=== PATIENT | female | born 1950 | race African-American/Black ===

== ENCOUNTER 2017-06-20 01:44 | Inpatient (IN) | payer SELFPAY ==
[2017-06-20] VITALS (13 sets, daily range): BP systolic 133–157; BP diastolic 65–100
[~2017-06-20] VITALS: Ht 157.5 cm; Wt 64.9 kg
[2017-06-20] MEDS ORDERED: SODIUM CHLORIDE 0.9% 1,000 ML IV ONE (02:23)
[2017-06-20 02:58] LABS: BASOPHILS % 0.8 % (0.0-2.0); EOSINOPHILS % 2.5 % (0.0-5.0); LYMPHOCYTES % 33.5 % (20.0-50.0); MEAN CORPUSCULAR HEMOGLOBIN 17.7 pg (28.0-32.0); MEAN CORPUSCULAR VOLUME 63.5 fL (81.0-99.0); MEAN PLATELET VOLUME 8.7 fl (7.4-10.4); MONOCYTES % 7.6 % (2.0-8.0); NEUTROPHILS % 55.6 % (40.0-76.0); PLATELET 243 x1000/uL (130-400); RED BLOOD CELL COUNT 3.09 mill/uL (4.2-5.4); RED CELL DISTRIBUTION WIDTH 23.1 % (11.6-14.6)
[2017-06-20 03:01] LABS: HEMOGLOBIN. 5.5 g/dL (12.0-16.0)
[2017-06-20 03:02] LABS: HEMATOCRIT. 19.6 % (36.0-48.0)
[2017-06-20 03:10] LABS: CARBON DIOXIDE 25 mEq/L (21-32); CHLORIDE 108 mEq/L (98-107)
[2017-06-20 03:16] LABS: PLATELET ESTIMATE NORMAL
[2017-06-20 03:24] LABS: TOTAL IRON BINDING CAPACITY 433 ug/dL (250-450)
[2017-06-20] MEDS ORDERED: GUAIFENESIN 200MG/10ML SUGAR FREE UDC PO PRN (09:45)
[2017-06-20] MEDS ORDERED: ZOLPIDEM TARTRATE 5MG TABLET PO PRN (09:45)
[2017-06-20] MEDS ORDERED: LORAZEPAM 2MG/ML CPJ IV PRN (09:45)
[2017-06-20] MEDS ORDERED: NITROGLYCERIN 0.4MG TABLET SL SL PRN (09:45)
[2017-06-20] MEDS ORDERED: ACETAMINOPHEN 325MG TABLET PO PRN (09:45)
[2017-06-20] MEDS ORDERED: DIPHENHYDRAMINE 50MG/ML VIAL IV PRN (09:45)
[2017-06-20] MEDS ORDERED: IPRATROPIUM/ALBUTEROL 0.5-3(2.5)MG/3ML NEB INH PRN (09:45)
[2017-06-20] MEDS ORDERED: TRAMADOL 50MG TABLET PO PRN (09:45)
[2017-06-20] MEDS ORDERED: MAGNESIUM/ALUMINUM HYDROXIDE/SIMETHICONE 30ML UDC PO PRN (09:45)
[2017-06-20] MEDS ORDERED: CLONIDINE 0.1MG TABLET PO PRN (09:45)
[2017-06-20] MEDS ORDERED: NA PHOS,M-B/NA PHOS,DI-BA ENEMA 118ML PR PRN (09:45)
[2017-06-20] MEDS ORDERED: DOCUSATE SODIUM 100MG CAPSULE PO PRN (09:45)
[2017-06-20] MEDS ORDERED: ONDANSETRON HCL 4MG/2ML VIAL IV PRN (09:45)
[2017-06-20] MEDS ORDERED: LATA2.5D2 EACHEYE (10:06)
[2017-06-20] MEDS ORDERED: TIMO15DR12 EACHEYE (10:06)
[2017-06-20 10:32] LABS: VITAMIN B12 SERUM 258 pg/mL (211-911)
[2017-06-20 10:37] LABS: FOLIC ACID (FOLATE) SERUM > 20.00 ng/mL (>5.38)
[2017-06-20 14:49] LABS: *AMPHETAMINES SCREEN URINE NEGATIVE (NEGATIVE); *BARBITURATES SCREEN URINE NEGATIVE (NEGATIVE); *BENZODIAZEPINES SCREEN URINE NEGATIVE (NEGATIVE); *COCAINE SCREEN URINE NEGATIVE (NEGATIVE); CANNABINOID URINE SCREEN NEGATIVE (NEGATIVE); METHADONE URINE SCREEN NEGATIVE (NEGATIVE); OPIATES URINE SCREEN NEGATIVE (NEGATIVE); PHENCYCLIDINE URINE SCREEN NEGATIVE (NEGATIVE)
[2017-06-20 18:54] LABS: HEMATOCRIT 29.8 % (36.0-48.0); HEMOGLOBIN 9.4 g/dL (12.0-16.0)
[2017-06-20 19:00] LABS: PARTIAL THROMBOPLASTIN TIME 25.2 sec (24.0-34.0); PROTHROMBIN TIME 10.5 sec
[2017-06-20] MEDS: LISINOPRIL 20MG TABLET PO SCH (20:57)
[2017-06-21] VITALS: BP 142/77
[2017-06-21 04:00] VITALS: BP 113/69
[2017-06-21 08:07] VITALS: BP 145/66
[2017-06-21] MEDS: PANTOPRAZOLE SODIUM 40 MG/VIAL IV SCH (09:29)
[2017-06-21] MEDS: LISINOPRIL 20MG TABLET PO SCH ×2 (09:29→21:00)
[2017-06-21 11:14] VITALS: BP 144/76
[2017-06-21] MEDS ORDERED: LACTULOSE 20G/30ML UDC PO SCH (12:22)
[2017-06-21 16:07] VITALS: BP 160/75
[2017-06-21 16:32] LABS: BASOPHILS % 0.4 % (0.0-2.0); EOSINOPHILS % 3.5 % (0.0-5.0); HEMATOCRIT. 30.7 % (36.0-48.0); HEMOGLOBIN. 9.7 g/dL (12.0-16.0); MEAN CORPUSCULAR HEMOGLOBIN 22.5 pg (28.0-32.0); MEAN CORPUSCULAR VOLUME 70.9 fL (81.0-99.0); MEAN PLATELET VOLUME 8.7 fl (7.4-10.4); MONOCYTES % 8.9 % (2.0-8.0); NEUTROPHILS % 52.2 % (40.0-76.0); PLATELET 249 x1000/uL (130-400); RED BLOOD CELL COUNT 4.33 mill/uL (4.2-5.4); RED CELL DISTRIBUTION WIDTH 28.1 % (11.6-14.6)
[2017-06-21 16:49] LABS: PLATELET ESTIMATE NORMAL
[2017-06-21 16:52] LABS: CARBON DIOXIDE 25 mEq/L (21-32); CHLORIDE 108 mEq/L (98-107)
[2017-06-21] MEDS ORDERED: METOCLOPRAMIDE HCL 10MG/2ML VIAL IV NR ×2 (19:00→22:00)
[2017-06-21] MEDS ORDERED: BISACODYL 5MG TABLET PO NR ×2 (19:00→22:00)
[2017-06-21 20:00] VITALS: BP 164/74
[2017-06-21] MEDS ORDERED: SORBITOL 70% SOLN 30ML PO NR ×2 (20:00→23:00)
[2017-06-21] MEDS ORDERED: DEXT 5%/0.45% NACL KCL 20MEQ/L 1,000 ML IV SCH (20:30)
[2017-06-22] VITALS: BP 125/63
[2017-06-22 04:00] VITALS: BP 122/58
[2017-06-22] MEDS ORDERED: METOCLOPRAMIDE HCL 10MG/2ML VIAL IV NR (05:00)
[2017-06-22] MEDS ORDERED: BISACODYL 5MG TABLET PO NR (05:00)
[2017-06-22] MEDS ORDERED: SORBITOL 70% SOLN 30ML PO NR (06:00)
[2017-06-22 07:28] LABS: PARTIAL THROMBOPLASTIN TIME 26.3 sec (24.0-34.0); PROTHROMBIN TIME 10.8 sec
[2017-06-22 07:29] LABS: BASOPHILS % 0.5 % (0.0-2.0); EOSINOPHILS % 3.3 % (0.0-5.0); HEMATOCRIT. 30.7 % (36.0-48.0); HEMOGLOBIN. 9.7 g/dL (12.0-16.0); LYMPHOCYTES % 31.2 % (20.0-50.0); MEAN CORPUSCULAR HEMOGLOBIN 22.6 pg (28.0-32.0); MEAN CORPUSCULAR VOLUME 71.4 fL (81.0-99.0); MEAN PLATELET VOLUME 8.6 fl (7.4-10.4); MONOCYTES % 7.6 % (2.0-8.0); NEUTROPHILS % 57.4 % (40.0-76.0); PLATELET 280 x1000/uL (130-400); RED BLOOD CELL COUNT 4.31 mill/uL (4.2-5.4); RED CELL DISTRIBUTION WIDTH 28.1 % (11.6-14.6)
[2017-06-22 07:48] VITALS: BP 138/72
[2017-06-22 07:56] LABS: CHLORIDE 109 mEq/L (98-107)
[2017-06-22 08:11] LABS: CARBON DIOXIDE 25 mEq/L (21-32)
[2017-06-22] MEDS: LISINOPRIL 20MG TABLET PO SCH (08:42)
[2017-06-22] MEDS: PANTOPRAZOLE SODIUM 40 MG/VIAL IV SCH (08:42)
[2017-06-22 11:01] VITALS: BP 138/72
[2017-06-24 10:08] LABS: HGB A 98.2 % (94.0-98.0); HGB A2 1.8 % (0.7-3.1); HGB SOLUBILITY Negative (Negative)
== END 2017-06-22 11:35 | disposition home or self-care (01) | DRG 663 ==
LOC: ER 01:44 → 6WST 03:22 → ENRESERV 06:54
PROVIDERS: ADMIT Internal Medicine; ATTEND Internal Medicine
PROC: 30233N1 Transfusion of Nonautologous Red Blood Cells into Peripheral Vein, Percutaneous Approach (ICD-10-PCS; principal; 2017-06-20)
DX: D50.9 Iron deficiency anemia, unspecified (principal); E44.1 Mild protein-calorie malnutrition; I10 Essential (primary) hypertension; K92.2 Gastrointestinal hemorrhage, unspecified; Z68.26 Body mass index [BMI] 26.0-26.9, adult
CPT/HCPCS: 36415; 71010; 80048; 80053; 80061; 80305; 82270; 82607; 82728; 82746; 83021; 83036; 83540; 83550; 85014; 85018; 85025; 85610; 85660; 85730; 86850; 86900; 86920; 93005; 93970; 96360; 96361; 99285; C9113; J2765; J7030; J7040; J7050; P9016